=== PATIENT | male | born 1935 | race Caucasian/White ===

== ENCOUNTER 2016-11-20 09:17 | Emergency (ER) | payer MEDICARE, OTHER ==
--- NOTE | 2016-11-20 10:01 | ER PHYSICIAN DOCUMENTATION ---
Physician Documentation [facility] Name:Patel Saini Age:81 yrs Sex:Male :1935 Arrival Date:11/20/2016 Time:09:17 Bed1 Private MD: Jose Angel Groves Disposition: 11/20 09:49 Chart complete. tl1 Disposition: 11/20/16 09:45 Discharged to Home/Self Care. Impression: Uvulitis. - Condition is Good. - Discharge Instructions: Cellulitis - UVULITIS. - Prescriptions for Amoxicillin 500 mg Oral Capsule - take 1 capsule by ORAL route every 8 hours for 10 days; 30 tablet. - Medical Reconciliation form form. - Follow up: Issa Puckett MD; When: 7 - 10 days; Reason: Recheck today's complaints, Continuance of care. - Problem is new. - Symptoms have improved. HPI: 09:37 This 81 yrs old Male presents to ER via Walk In with complaints of Sore tl1 Throat. 09:46 The patient presents with sore throat. Onset: The symptom(s)/episode began/occurred tl1 gradually, yesterday. Severity of symptoms: At their worst the symptoms were very mild, in the emergency department the symptoms are unchanged. Modifying factors: The symptoms are alleviated by nothing, the symptoms are aggravated by nothing. The patient has experienced a previous episode. thought his uvula was swollen and red similar to his piror episode of uvulitis.. Historical: - Allergies: No known drug Allergies; - Home Meds: 1. VITAMINS - PMHx: ALZHEIMERS; - PSHx: HERNIA REPAIR; - Tetanus: < 10 years. - Ebola Screening: : Patient denies travel to an Ebola-affected area in the 21 days before illness onset. No symptoms or risks identified at this time. . - Immunization history: Flu Vaccine < 1 year. - Social history: Smoking status: Patient states was never smoker of tobacco. ROS: 09:47 ENT: Positive for nasal discharge, sinus congestion, sore throat. tl1 09:47 All other systems are negative. Exam: 09:48 Constitutional: This is a well developed, well nourished patient who is awake, alert, tl1 and in no acute distress. 09:48 Head/face: Exam is negative for acute changes. 09:48 ENT: Mouth: is normal, Oral mucosa: pink and intact, moist, Posterior pharynx: Uvula: midline, edematous, erythema, Dental exam: no acute changes. 09:48 Neck: ROM/movement: is normal, is supple, Lymph nodes: no appreciated lymphadenopathy. 09:48 Cardiovascular: Rate: normal, Rhythm: regular, Heart sounds: normal. 09:48 Respiratory: Respirations: normal, Breath sounds: are normal. 09:48 Abdomen/GI: Palpation: abdomen is soft and non-tender. 09:48 Skin: Exam negative for acute changes. Vital Signs: 09:23 BP 127 / 65; Pulse 90; Resp 20; Temp 98.7(O); Pulse Ox 91% on R/A; Weight 79.38 kg (R); arc Height 6 ft. 1 in. (185.42 cm) (R); Pain 0/10; 10:00 Pulse 78; Resp 16; Pulse Ox 91% on R/A; Pain 0/10; lc 09:23 Body Mass Index 23.09 (79.38 kg, 185.42 cm) arc MDM: 09:37 Patient medically screened. tl1 09:48 Data reviewed: vital signs, nurses notes, and as a result, I will discharge patient. 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 Dispensed Medications: No medications were administered Signatures: Fela Win RN RN Jose Angel Baron MD MD tl1
--- NOTE | 2016-11-20 10:01 | ER NURSING DOCUMENTATION ---
Nurse's Notes [facility] Name:Patel Saini Age:81 yrs Sex:Male :1935 Arrival Date:11/20/2016 Time:09:17 Bed1 Private MD: Diagnosis:Uvulitis Presentation: 11/20 09:23 Presenting complaint: Patient states: C/O SINUS DRAINAGE FOR MONTHS. WORSE TODAY AND lc DRAINAGE CAUSING SWALLOWING PROBLEMS. NO FEVER, COUGH OR OTHER SYMPTOMS. Transition of care: patient was not received from another setting of care. Notified ED Physician of patient's arrival and CC. 09:23 Acuity: GEMA 3 lc 09:23 Method Of Arrival: Walk In Triage Assessment: :29 General: Appears in no apparent distress, Behavior is appropriate for age, cooperative. lc Pain: Denies pain. EENT: Oral mucosa is moist. Throat has patchy exudate with gag reflex present. Neuro: Level of Consciousness is awake, alert, Oriented to person, place, time, event. Respiratory: Airway is patent Respiratory effort is Respiratory pattern is regular, symmetrical. : Derm: Skin is pink, warm & dry. Historical: - Allergies: No known drug Allergies; - Home Meds: 1. VITAMINS - PMHx: ALZHEIMERS; - PSHx: HERNIA REPAIR; - Tetanus: < 10 years. - Ebola Screening: : Patient denies travel to an Ebola-affected area in the 21 days before illness onset. No symptoms or risks identified at this time. . - Immunization history: Flu Vaccine < 1 year. - Social history: Smoking status: Patient states was never smoker of tobacco. Screenin:31 Infectious Disease Risk None. Abuse screen: Denies threats or abuse. Denies injuries lc from another. Nutritional screening: No deficits noted. Assessment: 09:31 See Triage Assessment done by same RN. Respiratory: Airway is patent Breath sounds are lc clear bilaterally. Vital Signs: 09:23 BP 127 / 65; Pulse 90; Resp 20; Temp 98.7(O); Pulse Ox 91% on R/A; Weight 79.38 kg (R); arc Height 6 ft. 1 in. (185.42 cm) (R); Pain 0/10; 10:00 Pulse 78; Resp 16; Pulse Ox 91% on R/A; Pain 0/10; lc 09:23 Body Mass Index 23.09 (79.38 kg, 185.42 cm) [facility] ED Course: 09:22 Patient arrived in ED. dp 09:23 Fela Win, RN is Primary Nurse. 09:27 Triage completed. 09:32 Valuables Remains with patient Patient has correct armband on for positive lc identification. Bed in low position. Call light in reach. Adult w/ patient. 09:37 Jose Angel Valdez MD is Attending Physician. tl1 09:45 Issa Puckett MD is Referral Physician. tl1 Administered Medications: No medications were administered Outcome: :45 Discharge ordered by . tl1 10:00 Discharged to home ambulatory, with significant other. 10:00 Condition: stable 10:00 Discharge Assessment: Patient awake, alert and oriented x 3. No cognitive and/or functional deficits noted. Patient verbalized understanding of disposition instructions. 10:00 Discharge instructions given to patient, Instructed on discharge instructions, follow up and referral plans. medication usage, Demonstrated understanding of instructions, medications, Prescriptions given X 1. 10:01 Patient left the ED. 11/21 11:35 Discharge F/U Call: Unable to reach: left voicemail: Signatures: Fela Win, TAYO RN Jose Angel Valdez MD MD tl1 Chew, Nona, Reg Reg arc Candelaria, Soraya dp
== END 2016-11-20 10:01 | disposition home or self-care (01) ==
LOC: ER 09:17
DX: K12.2 Cellulitis and abscess of mouth (principal); G30.9 Alzheimer's disease, unspecified
CPT/HCPCS: 99282; 99283